=== PATIENT | male | born 1970 | race Caucasian/White ===

== ENCOUNTER 2020-08-29 03:14 | Inpatient (IN) | payer BC ==
[~2020-08-29] VITALS: Ht 185.4 cm; Wt 83.6 kg
[2020-08-29 04:12] LABS: BASOPHILS ABSOLUTE AUTO 0.09 K/mm3 (0.00-0.23); BASOPHILS PERCENT AUTO 1 % (0-2); EOSINOPHILS ABSOLUTE AUTO 0.29 K/mm3 (0.00-0.68); EOSINOPHILS PERCENT AUTO 3 % (0-6); Hematocrit 50.3 % (37.0-53.0); Hemoglobin 16.5 g/dL (13.5-17.5); IMMATURE GRAN ABSOLUTE AUTO 0.03 K/mm3 (0.00-0.10); IMMATURE GRAN PERCENT AUTO 0 % (0-1); LYMPHOCYTES ABSOLUTE AUTO 2.19 K/mm3 (0.84-5.20); LYMPHOCYTES PERCENT AUTO 22 % (21-46); MONOCYTES PERCENT AUTO 10 % (4-13); Mean Corpuscular HGB 28.9 pg (26.0-34.0); Mean Corpuscular HGB Conc 32.8 g/dL (31.5-36.5); Mean Corpuscular Volume 88 fL (80-100); Mean Platelet Volume 11.1 fL (9.1-12.4); NEUTROPHILS ABSOLUTE AUTO 6.39 K/mm3 (1.96-9.15); NEUTROPHILS PERCENT AUTO 64 % (41-73); Platelet Count 229 K/mm3 (150-400); RDW Coefficient Variation 12.4 % (11.7-14.2); RDW Standard Deviation 40.8 fL (35.1-46.3); White Blood Cell Count 9.99 K/mm3 (4.00-11.30)
[2020-08-29 04:34] LABS: Alanine Aminotransfer (ALT/SGP 35 U/L (12-78); Albumin, Blood 3.8 g/dL (3.4-5.0); Alk Phos 95 U/L (50-136); Anion Gap 7 mmol/L (6-16); Aspartate Aminotrans (AST/SGOT 23 U/L (12-37); Bilirubin, Total 0.7 mg/dL (0.1-1.0); Blood Urea Nitrogen 20 mg/dL (8-24); Bun/Creatinine Ratio 15.2 (12.0-20.0); CO2, Blood 26 mmol/L (21-32); Calcium, Blood 8.8 mg/dL (8.5-10.1); Chloride, Blood 108 mmol/L (98-108); Creatinine, Blood 1.32 mg/dL (0.60-1.20); Ethanol (Alcohol), Blood, Med <3 mg/dL; Globulin, Blood 3.7 g/dL (2.2-4.0); Glomerular Filtration Rate >60 (60-); Glucose, Blood 117 mg/dL (70-99); Potassium, Blood 3.9 mmol/L (3.5-5.5); Salicylate <1.7 mg/dL (2.8-20.0); Sodium, Blood 141 mmol/L (136-145); Total Protein, Blood 7.5 g/dL (6.4-8.2)
[2020-08-29 04:41] LABS: Acetaminophen, Random <2.0 ug/mL (10.0-30.0)
[2020-08-29 04:52] LABS: Source, Urine Clean Catch
[2020-08-29 04:56] LABS: Bilirubin, Urine Neg (Neg); Blood, Urine 2+ (Neg); Glucose Qualitative, Urine Neg (Neg); Ketones, Urine Neg (Neg); Leukocyte Esterase, Urine Neg (Neg); Nitrite, Urine Neg (Neg); Protein, Urine 1+ (Neg); Urobilinogen, Urine NORM (Normal)
[2020-08-29 05:00] LABS: Appearance, Urine Clear (Clear); Color, Urine Yellow (P-Yellow)
[2020-08-29 05:11] LABS: Red Blood Cells, Urine 0-2 /hpf (0-2); White Blood Cells, Urine 0-2 /hpf (0-5)
[2020-08-29 05:12] LABS: Bacteria Few /hpf
[2020-08-29 05:13] LABS: Squamous Epithelial Cells Not Seen /hpf (Few)
[2020-08-29 05:20] LABS: U Amphetamine Screen Not Detected; U Barbituate Screen Not Detected; U Benzodiazapine Screen Not Detected; U Buprenorphine Screen Not Detected; U Cannabinoids Screen Not Detected; U Cocaine Screen Not Detected; U Methadone Screen Not Detected; U Methamphetamine Screen Not Detected; U Opiates Screen Not Detected; U Oxycodone Screen Not Detected; U Phencyclidine Screen Not Detected; U Propoxyphene Screen Not Detected
[2020-08-29 06:25] LABS: Appearance, CSF Clear (Clear); Color, CSF No Color (No Color)
[2020-08-29 06:26] LABS: RBC Count, CSF 8 /mm3 (0-0); WBC Count, CSF 6 /mm3 (0-5)
[2020-08-29 06:28] LABS: Influenza A, PCR NEGATIVE (NEGATIVE); Influenza B, PCR NEGATIVE (NEGATIVE); Resp Syncytial Virus, PCR NEGATIVE (NEGATIVE); SARS-Cov-2 (COVID-19) PCR, MMC NEGATIVE (NEGATIVE)
[2020-08-29 06:30] LABS: Appearance, CSF Clear (Clear); Color, CSF No Color (No Color); WBC Count, CSF 3 /mm3 (0-5)
[2020-08-29 06:31] LABS: RBC Count, CSF 38 /mm3 (0-0)
[2020-08-29 06:39] LABS: Cryptococcus Neoformans/Gattii Not Detected (NOT DETECT); Enterovirus Not Detected (NOT DETECT); Escherichia Coli K1 Not Detected (NOT DETECT); Haemophilus Influenza Not Detected (NOT DETECT); Herpes Simplex Virus 1 Not Detected (NOT DETECT); Herpes Simplex Virus 2 Not Detected (NOT DETECT); Human Herpesvirus 6 Not Detected (NOT DETECT); Human Parechovirus Not Detected (NOT DETECT); Listeria Monocytogenes Not Detected (NOT DETECT); Neisseria Meningitidis Not Detected (NOT DETECT); Streptococcus Agalactiae Not Detected (NOT DETECT); Streptococcus Pneumoniae Not Detected (NOT DETECT); Varicella Zoster Virus Not Detected (NOT DETECT)
[2020-08-29 06:47] LABS: Glucose, CSF 73 mg/dL (40-70)
[2020-08-29 06:52] LABS: Lymphocytes, CSF 66 % (40-80); Monocytes, CSF 32 % (15-45); Neutrophils, CSF 2 % (0-6)
[2020-08-29 06:58] LABS: Lymphocytes, CSF 40 % (40-80); Monocytes, CSF 60 % (15-45)
--- NOTE | 2020-08-29 10:11 | NUR ---
PT TO ICU 2 FROM ED. PT ARRIVES INTUBATED AND SEDATED. VENT SETTINGS AC 16/500/5/35%, ETT 8.0 27 @ TEETH. PT ARRIVES SEDATED ON 40 MCG/KG/MIN PROPOFOL AND VERSED GTT @ 5. PT EASILY AROUSED AND AGITATED WITH STIMULATION, PT REACHES FOR TUBES AND SITS UP IN BED. VERSED GTT STOPPED PER PHYSICIAN ORDER AND PROPOFOL INCREASED TO 65 MCG/KG/MIN. LR @ 100 ML/HR INFUSING. PT HAS MINOR ABRASION TO RIGHT FOREHEAD, SMALL ABRASION TO RIGHT BIG TOE, SCATTERED SCABS BLE, LARGE BRUISE TO LEFT HIP, LUMBAR PUNCTURE PERFORMED IN ED. ARNETT PATENT AND DRAINING TO GRAVITY, ETT TO LIS. SEE FULL ADMISSION ASSESSMENT.
--- NOTE | 2020-08-29 10:30 | NUR ---
PT PLACE ON 2-MD HOLD IN ED D/T ACUTE PSYCHOSIS, ATTEMPT TO INJURE SELF, STAFF, AND FAMILY. HOLD ORDER ENTERED. SUICIDE ASSESSMENT TO BE DONE UPON EXTUBATION.
--- NOTE | 2020-08-29 12:40 | NUR ---
CONFERENCE CALL WITH THIS NURSE, PT'S 2-SISTERS, , AND 2-SON'S. PER PATIENTS FAMILY, PT HAS HISTORY OF MINOR ASTHMA, NO ADDITIONAL MEDICAL ISSUES. NO HISTORY OF ALCOHOL OR DRUG ABUSE. PT DOES NOT TAKE ANY MEDICATIONS. PATIENT DOES NOT HAVE PERSONAL MENTAL HEALTH HISTORY BUT PATIENTS MOTHER WAS DIAGNOSED WITH BIPOLAR AND SHIZOAFFECTIVE DISORDER (PER FAMILY THIS WAS D/T CHILDHOOD TRAUMA). FAMILY BELIEVES PATIENT IS EXPERIENCING A "PSYCHOTIC BREAK" D/T INCREASING FAMILY STRESS. PATIENT'S FATHER WAS RECENTLY DIAGNOSED WITH CANCER AND THE FAMILY HAS EXPERIENCED SEVERAL LOSSES OF FAMILY MEMBERS OVER THE LAST YEAR. PATIENTS FAMILY BELIEVE PATIENT WOULD BENEFIT FROM INPATIENT PSYCHIATRIC CARE AT THIS TIME. PATIENTS CONCERNED THAT WHEN EXTUBATED PATIENT MAY BECOME COMBATIVE OR WILL APPEAR TO BE "NORMAL". STATES PT HAS A "TRIGGER WORD" THAT IS TRIGGERING HIS PARNOIA- TRIGGER WORD IS "LATTER DAY". PER PATIENTS , PATIENT HAS EXPERIENCED INCREASING ANXIETY AND HAS BEEN UNABLE TO SLEEP FOR 3 DAYS. AROUND 1900 LAST NIGHT PT BEGAN TO EXPERIENCE AUDITORY HALLUCINATIONS AND BECAME PARANOID INSISTING "THEY WERE AFTER HIM". AT SOME POINT PATIENT DROPPED 2LB WEIGHT ON HIS FOREHEAD CAUSING A SMALL ABRASION ON RIGHT SIDE OF FOREHEAD. PT'S FAMILY DESIGNATED SISTER CASPER POINT OF CONTACT. FAMILY REQUESTING TO KNOW WHEN PT IS TO BE EXTUBATED THEY WISH TO BE IN THE PARKING LOT. REVIEWED VISITATION RULES AND VISITING HOURS WITH FAMILY. THEY STATE UNDERSTANDING AND SEEM TO HAVE A REALISTIC AND APPROPRIATE EXPECTATIONS.
--- NOTE | 2020-08-29 15:40 | NUR ---
PT EASILY AGITATED, SITS UP IN BED PULLING ON RESTRAINTS AND BITING TUBE. UNABLE TO INCREASE PROPOFOL GREATER THAN 40 MCG/KG/MIN D/T RELATED HYPOTENSION. PT GIVEN FENTANYL 50 MCG Q2H AND ORDER TO START PRECEDEX GTT.
--- NOTE | 2020-08-29 17:57 | NUR ---
SHIFT SUMMARY PT REMAINS INTUBATED AND SEDATED. VENT SETTINGS UNCHANGE AC 16/500/5/35% WITH SATS>90%. PROPOFOL @30 MCG/KG/MIN, PRECEDEX 0.2 MCG/KG/HR. PT EASILY AROUSABLE AND AGITATED WITH STIMULI BUT UNABLE TO INCREASE SEDATION D/T HYPOTENSION. PT RESPONDS WELL TO 50 MCG FENTANYL ADJUNCT TO SEDATION. 1200 URINARY OUTPUT.. PLEASE SEE PREVIOUS NOTES FROM THIS SHIFT. WILL REPORT TO DAYSHIFT NURSE.
--- NOTE | 2020-08-29 19:00 | NUR ---
ASSUMED CARE NOTE: ASSUMED CARE OF PT AT 1900, RECEVIED REPORT FROM AWAIS HERNANDEZ. PT IS INTUBATED AND SEDATED WITH PROPOFOL AT 30MCG/KG/MIN, PRECEDEX AT 0.4MCG/KG/HR. PT IS RESPONDING TO PAINFUL AND VERBAL STIMULI. PT ABLE TO ANSWER YES/NO QUESTIONS USING HEAD NODS. VENT SETTINGS AT AC16/500/5/30% SPO2 ABOVE 90% NO SECRETIONS NOTED VIA ETT SUCTION. EXP WHEEZE HEARD IN RIGHT LOBES. PT IN SINUS RYTHYM WITH HR IN THE 60'S. SOFT BP NOTED DUE TO SEDATION, WILL MONITOR. OGT CLAMPED AT THIS TIME. BT HEARD IN ALL QUADRANTS. ARNETT PATENT DRAINING TO GRAVITY. PT IN BILAT SWR, BED AT LOWEST LEVEL.
--- NOTE | 2020-08-29 20:41 | NUR ---
UPDATE: ATTEMPTED TO DECREASE PROPOFOL DUE TO LOW BP, PROPOFOL AT 25MCG/KG/MIN, PT SAT UP IN BED, BEGAN TO COUGH, BECAME AGITATED. PT WAS ABLE TO CALM SELF, PROPOFOL INCREASED BACK TO 30MCG/KG/MIN. WILL CONTINUE TO MONITOR.
--- NOTE | 2020-08-29 21:06 | NUR ---
VENT SETTINGS CHANGED TO AC16/560/5/30% ATTEMPTING TO TITRATE PROPOFOL DUE TO SBP IN THE 70'S AND MAP AT 58. PRECEDEX INCREASED TO 0.7MCG/KG/HR, FENTAYNL WILL BE GIVEN PRN, FOR SEDATION ADJUNCT. WILL CALL PHYSICAN TO NOTIFY OF BP.
--- NOTE | 2020-08-29 21:21 | NUR ---
CALLED DR. RM REGARDING BP, ORDERS TO GIVE 1 L OF NS WIDE OPEN AND TO START HALDOL IV PRN FOR AGITATION. IF BP DOES NOT IMPROVE AFTER 1L THEN GIVE ANOTHER 2ND LITER BOLUS. IF BP CONTINUES TO BE LOW WOULD LIKE TO BE NOTIFED.
--- NOTE | 2020-08-29 23:21 | NUR ---
PRECEDEX ON SB, IT MAY BE THE CAUSE OF LOW BP. PT WAS AGITATED, HALDOL GIVEN PER EMAR, WELL FENTANYL IV. RT AT BEDSIDE. WILL CONTINUE TO MONITOR
--- NOTE | 2020-08-30 01:52 | NUR ---
UPDATE: CALLED REGARDING LOW BP AND PT NOT TOLERATING VENT. UNABLE TO SUCCESSFULLY SEDATE PT DUE TO LOW BP. VERSED DRIP RECOMMENDED. 3RD LITER OF NS ALSO ORDERED.
--- NOTE | 2020-08-30 02:25 | NUR ---
UPDATE: PT SHIVERING , PLACED WARM BLANKETS. PT CONTINUES TO FOLLOW DIRECTIONS. VERSED DRIP INITIATED. NO BM SO FAR, DISPITE LACTULOSE DOSE GIVEN AT 2100. WILL BP STABLIZING.
[2020-08-30 03:26] LABS: BASOPHILS ABSOLUTE AUTO 0.03 K/mm3 (0.00-0.23); BASOPHILS PERCENT AUTO 1 % (0-2); EOSINOPHILS ABSOLUTE AUTO 0.31 K/mm3 (0.00-0.68); EOSINOPHILS PERCENT AUTO 5 % (0-6); Hematocrit 37.1 % (37.0-53.0); IMMATURE GRAN ABSOLUTE AUTO 0.01 K/mm3 (0.00-0.10); IMMATURE GRAN PERCENT AUTO 0 % (0-1); LYMPHOCYTES ABSOLUTE AUTO 1.24 K/mm3 (0.84-5.20); LYMPHOCYTES PERCENT AUTO 21 % (21-46); MONOCYTES ABSOLUTE AUTO 0.63 K/mm3 (0.16-1.47); MONOCYTES PERCENT AUTO 11 % (4-13); Mean Corpuscular HGB 29.1 pg (26.0-34.0); Mean Corpuscular HGB Conc 32.3 g/dL (31.5-36.5); Mean Corpuscular Volume 90 fL (80-100); NEUTROPHILS ABSOLUTE AUTO 3.58 K/mm3 (1.96-9.15); NEUTROPHILS PERCENT AUTO 62 % (41-73); Platelet Count 156 K/mm3 (150-400); RDW Coefficient Variation 12.8 % (11.7-14.2); RDW Standard Deviation 42.4 fL (35.1-46.3); Red Blood Cell Count 4.12 M/mm3 (4.30-5.90)
[2020-08-30 03:45] LABS: Magnesium, Blood 2.2 mg/dL (1.6-2.4)
[2020-08-30 03:53] LABS: Alanine Aminotransfer (ALT/SGP 21 U/L (12-78); Albumin, Blood 2.4 g/dL (3.4-5.0); Alk Phos 67 U/L (50-136); Anion Gap 4 mmol/L (6-16); Aspartate Aminotrans (AST/SGOT 15 U/L (12-37); Bilirubin, Total 0.7 mg/dL (0.1-1.0); Blood Urea Nitrogen 16 mg/dL (8-24); Bun/Creatinine Ratio 16.4 (12.0-20.0); CO2, Blood 22 mmol/L (21-32); Calcium, Blood 7.1 mg/dL (8.5-10.1); Chloride, Blood 119 mmol/L (98-108); Creatinine, Blood 0.97 mg/dL (0.60-1.20); Globulin, Blood 2.4 g/dL (2.2-4.0); Glomerular Filtration Rate >60 (60-); Glucose, Blood 91 mg/dL (70-99); Sodium, Blood 145 mmol/L (136-145)
[2020-08-30 03:54] LABS: Total Protein, Blood 4.8 g/dL (6.4-8.2)
--- NOTE | 2020-08-30 05:21 | NUR ---
SHIFT SUMMARY: SEE PREVIOUS NOTES. PT SEDATION IMPROVED WITH VERSED ON BOARD, CURRENTLY RUNNING AT 4MG/HR. PROPOFOL AT 25MCG/KG/MIN. VENT SETTINGS AT AC16/560/5/30% SPO2 ABOVE 90% PT IS CLEAR AND DIM T/O. NO SECRETIONS VIA ETT SUCTION. PT IN NSR WITH HR IN THE 70-80'S. SBP IMPROVING IN THE 100'S AT THIS TIME. GOAL TO MAINTAIN MAP ABOVE 60, PER DR. RM. PT RECEVIED 3L OF NS THIS SHIFT FOR BP SUPPORT. OGT TO LIS, LITTLE TO NO OUTPUT NOTED. NO BM THIS SHIFT. ARNETT PATENT AND DRAINING TO GRAVITY 600ML OUTPUT, HEYDI IN COLOR. SCD'S IN PLACE. WILL CONTINUE TO MONITOR PT UNTIL REPORT IS GIVEN TO ONCOMING SHIFT.
--- NOTE | 2020-08-30 09:05 | NUR ---
ASSUMED CARE / DR LICEA: REPORT RECEIVED FROM AGATA Rockwell RN. ASSUMED CARE OF THIS PT AT APPROX 0700. ON ASSESSMENT, THE PT IS INTUBATED W/ 8.0 ETT NOTED TO BE 27.0 CM AT THE TEETH. HE IS SEDATED W/ PROPOFOL @ 35 MCG/KG/MIN & VERSED @ 4 MG/HR. W/ THIS SEDATION INFUSING, HE IS ABLE TO FOLLOW SOME DIRECTIONS & ANSWER YES/NO QUESTIONS W/ HEAD NODDING. LS ARE CLEAR T/O, VENT SETTINGS: AC 16/560/5/25% W/ O2 SATS > 95%. MONITOR SHOWS SR W/ HR 70s, HYPOTENSION W/ SBP 90s NOTED WHEN PT RESTING QUIETLY. GOAL IS TO MAINTAIN MAP > 60. OGT IN PLACE TO LIS. SUCTION TURNED OFF AT APPROX 0905 FOR COMMUNICATIONS SENIOR ASSOCIATE THIS AM, WILL RESUME LIS IN APPROX 1 HR. PT HAS HAD NO BM DESPITE LACTULOSE PER EMAR. TEMP ARNETT PATENT/ DRAINING DARK YELLOW URINE. SKIN CONDITION OVERALL CDI - SEE ASSESSMENT FOR DETAILS. PROVIDER AT BEDSIDE TO EVAL PT THIS AM. HE WOULD LIKE THE VERSED TO BE STOPPED & HAS D/C'd THE ORDER. VENT FIO2 INCREASED TO 30%. ORDERS FOR ZYPREXA PER TUBE HAVE BEEN PLACED TO SEE IF THIS HELPS W/ PT's INTERMITTENT AGITATION. WILL CONTINUE TO MONITOR & UPDATE NEEDED.
--- NOTE | 2020-08-30 15:03 | NUR ---
EXTUBATION / UPDATE: THIS RN, CHIO Charlton, RT & FREDY Melendez, BLASTING MINER AT BEDSIDE FOR PENDING EXTUBATION. PROPOFOL HAS BEEN OFF SINCE APPROX 1255 & PRECEDEX CONTINUES INFUSING AT 0.5 MCG/KG/HR. THE PT IS CALM & COOPERATIVE AT THIS TIME, FOLLOWING DIRECTIONS & ANSWERING YES/ NO QUESTIONS W/ HEAD NODDING. PT EXTUBATED AT 1427 & BILAT SOFT WRIST RESTRAINTS ALSO REMOVED AT THIS TIME. THE PT HAS BEEN ENCOURAGE NOT TO SPEAK HIS THROAT WILL BE SORE, HE IS AGREEABLE TO THIS & CONTINUES TO COMMUNICATE USING HAND GESTURES/ NODS. HIS SISTER, CASPER, HAS COME TO VISIT TODAY & HAS SPOKEN W/ DR LICEA FOR AN UPDATE. SHE REMAINS AT BEDSIDE & IS SUPPORTIVE IN CARE. THE PT CONTINUES TO DO WELL SINCE EXTUBATION & DENIES PAIN.
--- NOTE | 2020-08-30 19:29 | NUR ---
SHIFT SUMMARY: NO ACUTE CHANGES SINCE PRIOR UPDATES. PT REMAINS A&O, COOPERATIVE W/ CARE ALTHOUGH SOMEWHAT PARANOID. WHEN THIS RN BRING THE PT A GLASS OF WATER, HE REQUESTS THAT THE WATER BE DUMPED OUT & THAT THE CUP BE FILLED W/ TAP WATER SO THAT HE CAN BE SURE THAT IT IS ONLY WATER. OTHERWISE HE IS PLEASANT. LS ARE CLEAR T/O, PT ON RA W/ O2 SATS > 95%. MONITOR SHOWS SR W/ HR 70-80s, BP STABLE. PT HAS NO GI COMPLAINTS & HAS TOLERATED A REGULAR DIET WELL THIS EVENING. DR LICEA WOULD LIKE THE LACTULOSE TO CONTINUE, DESPITE PT's FREQUENT, LOOSE BMs. HE WILL REASSESS THIS NEED AFTER AMMONIA LEVEL REDRAWN TOMORROW MORNING. ARNETT REMOVED SHORTLY AFTER EXTUBATION & PT HAS HAD NO DIFFICULTY VOIDING. SKIN CONDITION OVERALL CDI. REPORT GIVEN TO AGATA Rockwell RN TO ASSUME CARE.
--- NOTE | 2020-08-30 19:47 | NUR ---
ASSUMED CARE NOTE: ASSUMED CARE OF PT AT 1900, RECEVIED REPORT FROM KATELIN Sibley RN. PT IS ALERT AND ORIENTED TO SELF, FAMILY, AND FOLLOWS DIRECTIONS. PT UNABLE TO RECALL RECENT EVENTS. PT IS SHOWING SIGNS OF PARANOID BEHAVIOR. WHILE FLUSHING IV WITH NS FOR ASSESSMENT, PT REQUESTED TO SEE THE FLUSH OF NS, AND REQUESTED FOR THIS NURSE TO OPEN IT IN FRONT OF HIM. PT ALSO WANTS TO BE TOLD WHY ASSESSMENT IS REQUIRED, WHAT IS BEING DOCUMENTED IN HIS CHART, AND WHY THE ALARMS ARE GOING OFF. PT IS ON RA WITH SPO2 AT 98%, LUNG SOUNDS ARE CLEAR. PT REMOVED SPO2 MONITOR, WILL SPOT CHECK STATURATION LEVELS NEEDED. NO SIGNS OF RESPRIATORY DISTRESS NOTED. PT IS IN NSR WITH HR IN THE 70'S. SBP AT 160. PT DENIES ANY CHEST PAIN AT THIS TIME. PT DENIES ANY PAIN/NAUSEA. HYPERACTIVE BT HEARD IN ALL QUADRANTS. BIGGS PAD CHANGED DUE TO BM RESIDUAL. PT REQUESTED TO USE TOILET, REQUESTED THAT THIS NURSE LOOK AWAY AND COVERED HIMSELF WITH BLANKET. THIS RN STAYED BY PATIENT WHILE RESPECTING PRIVACY MUCH POSSIBLE. PT IS STEADY ON HIS FEET, NEEDS ASSISTANCE WITH CORDS. PRECEDEX INFUSING AT 0.5MCG/KG/HR, WILL ATTEMPT TO TITRATE T/O SHIFT. BED AT LOWEST LEVEL, CALL LIGHT WITHIN REACH.
--- NOTE | 2020-08-31 00:17 | NUR ---
PT WALKING AROUND IN ROOM, STS " I NEEDED WATER, I FELL ASLEEP AND DUMPED THE OLD ONE, I DO NOT TRUST ANYONE HERE" PT STS HE IS NOT ANXIOUS, HOWEVER IS CONFUSED ON WHERE HE IS. EXPLAINED TO PT THAT HE IS IN ICU, THAT HE IS BEING TAKEN CARE OF. PT THEN LAYED BACK INTO BED AND IS NOW WATCHING T.V. CALL LIGHT WITHIN REACH
[2020-08-31 03:14] LABS: BASOPHILS ABSOLUTE AUTO 0.02 K/mm3 (0.00-0.23); BASOPHILS PERCENT AUTO 0 % (0-2); EOSINOPHILS ABSOLUTE AUTO 0.31 K/mm3 (0.00-0.68); EOSINOPHILS PERCENT AUTO 5 % (0-6); Hematocrit 44.8 % (37.0-53.0); Hemoglobin 14.3 g/dL (13.5-17.5); IMMATURE GRAN ABSOLUTE AUTO 0.01 K/mm3 (0.00-0.10); IMMATURE GRAN PERCENT AUTO 0 % (0-1); LYMPHOCYTES ABSOLUTE AUTO 1.21 K/mm3 (0.84-5.20); LYMPHOCYTES PERCENT AUTO 19 % (21-46); MONOCYTES ABSOLUTE AUTO 0.57 K/mm3 (0.16-1.47); MONOCYTES PERCENT AUTO 9 % (4-13); Mean Corpuscular HGB Conc 31.9 g/dL (31.5-36.5); Mean Corpuscular Volume 91 fL (80-100); Mean Platelet Volume 10.9 fL (9.1-12.4); NEUTROPHILS PERCENT AUTO 67 % (41-73); Platelet Count 160 K/mm3 (150-400); RDW Coefficient Variation 12.4 % (11.7-14.2); RDW Standard Deviation 41.2 fL (35.1-46.3); Red Blood Cell Count 4.93 M/mm3 (4.30-5.90); White Blood Cell Count 6.42 K/mm3 (4.00-11.30)
[2020-08-31 03:32] LABS: Alanine Aminotransfer (ALT/SGP 38 U/L (12-78); Albumin/Globulin Ratio 0.9 (0.8-1.8); Alk Phos 87 U/L (50-136); Anion Gap 6 mmol/L (6-16); Aspartate Aminotrans (AST/SGOT 118 U/L (12-37); Blood Urea Nitrogen 7 mg/dL (8-24); CO2, Blood 27 mmol/L (21-32); Calcium, Blood 7.9 mg/dL (8.5-10.1); Chloride, Blood 113 mmol/L (98-108); Globulin, Blood 3.2 g/dL (2.2-4.0); Glomerular Filtration Rate >60 (60-); Glucose, Blood 96 mg/dL (70-99); Magnesium, Blood 2.1 mg/dL (1.6-2.4); Potassium, Blood 3.3 mmol/L (3.5-5.5); Sodium, Blood 146 mmol/L (136-145); Total Protein, Blood 6.2 g/dL (6.4-8.2)
--- NOTE | 2020-08-31 06:12 | NUR ---
SHIFT SUMMARY: SEE PREVIOUS NOTES. PRECEDEX HAS BEEN OFF SINCE 0000. PT HAS BEEN APPROPRIATE. USING CALL LIGHT, WILL GET UP OUT OF BED OCCASIONALLY TO OBTAIN WATER. BUILT A TRUST WITH PATIENT ABLE TO ADMINISTER MEDS, W/O DIFFICULTY. SHOWED PT EVERY MEDICATION AND EXPLAINED HOW THEY WORK, HE WAS AGREEABLE TO ALL. THIS NURSE HAD TO OPEN EACH MEDICATION IN FRONT OF PATIENT AND LET HIM SEE ALL LABELS. PT WALKED TO BEDSIDE TOILET, STEADY GAIT. PT HAS BEEN ON RA WITH SPO2 ABOVE 90 PERCENT. BP STABLE. PT HAS BEEN IN NSR WITH HR IN THE 80'S, UP THE 110 WHEN AMBULATING. WILL CONTINUE TO MONITOR PT UNTIL REPORT IS GIVEN TO ONCOMING SHIFT.
--- NOTE | 2020-08-31 08:15 | NUR ---
ASSESSMENT- PT AWAKE, ALERT, COOPERATIVE. ASKING QUESTIONS REGARDING CARE, REVIEWED PLAN. REMOTE MONITORING IN PLACE. 2 MD HOLD. PT MOVING SELF IN BED WITHOUT PROBLEMS. ATE BREAKFAST, NO N/V. FEBRILE, REFUSED TYLENOL. STATES "I DON'T FEEL BAD" WHEN ASKED REGARDING ANY PAIN OR DISCOMFORT. 2 PIV INTACT. ABLE TO FOLLOW DIRECTIONS. LUNGS CLEAR NO SOB. SINUS TACH, BP STABLE.
--- NOTE | 2020-08-31 08:32 | NUR ---
DR. URBANO CALLED BACK-UPDATED ON PT'S POTASSIUM LEVEL, HAD REPLACEMENT. PT STATES WOULD LIKE TO JUST REPLACE POTASSIUM BY EATING. BANANAS ORDERED PER REQUEST. CONTINUE TO MONITOR TEMPERATURE
--- NOTE | 2020-08-31 10:05 | NUR ---
AMBULATED TO SHOWER WITH CONFIGURATION ENGINEER, DID WELL. STATES FEELS BETTER. REVIEWED MEDICATIONS WITH PT-QUESTIONS ANSWERED, PLAN FOR DR. MANE TO CONSULT. ABLE TO DRINK ORANGE JUICE, ATE 2 BANANAS. TALKING ON PHONE WITH . CALM, COOPERATIVE.
--- NOTE | 2020-08-31 12:02 | NUR ---
PT EATING LUNCH WITHOUT COMPLAINTS. HAD RX FOR HEADACHE BEFORE-STATES RESOLVED NOW. DENIES ANY PROBLEMS. SMALL ABRASION LEFT FOREHEAD DRY.
--- NOTE | 2020-08-31 13:48 | NUR ---
Met pt in bed resting , pt. reports to be doing fine encouraged pt. and offered prayers
--- NOTE | 2020-08-31 15:00 | NUR ---
DENIES COMPLAINTS. PT'S HERE-REVIEWED PLAN OF CARE. QUESTIONS ANSWERED.
--- NOTE | 2020-08-31 15:45 | NUR ---
DR. MANE EVALUATED PATIENT- PLANS TO DC ZYPREXA, START SEROQUEL AT BEDTIME AND OBSERVE OVERNIGHT. OK FOR MEDICAL STATUS.
--- NOTE | 2020-08-31 18:43 | NUR ---
PT RESTING WITHOUT COMPLAINTS. HAS BEEN HERE FOR VISITING HOURS. DR. LICEA REVIEWED PLAN OF CARE WITH PT AND . WROTE NOTE EXPRESSING CONCERN FOR WHEN PT IS DISCHARGED-REPORTED TO DR. LICEA AND DR. URBANO. CONTINUE TO MONITOR. REMAINS COOPERATIVE, NO S/S AGITATION.
--- NOTE | 2020-08-31 19:15 | NUR ---
ASSUMING PT CARE: PT RESTING IN L SIDE LAYING POSITION, SLEEPING SOUNDLY, RR EVEN & UNLABORED. 2MD HOLD CONTINUES PER ORDERS. PT REMAINS ON REMOTE VIDEO MONITORING, SIGNALS COLLECTION TECHNICIAN CALLED & CONFIRMED PT IS BEING MONITORED. D/T PT's AGITATION REPORTED BY PREVIOUS RN, WILL ALLOW PT TO SLEEP @ THIS TIME & AWAKE HIM FOR BEDTIME MEDS & FULL ASSESSMENT.
--- NOTE | 2020-08-31 23:06 | NUR ---
PT UPDATE: RN @ BEDSIDE TO UPDATE PT's CIVIL RIGHTS PAPERWORK PT WAS INTUBATED AT THE TIME HE WAS PLACED ON A HOLD. CIVIL RIGHTS READ, PT NODDED IN UNDERSTANDING & ASKED APPROPRIATE QUESTIONS. PT DID APPEAR FRUSTRATED ABOUT THE LANGUAGE OF THE CIVIL RIGHTS, SHAKING HIS HEAD & ROLLING HIS EYES WHILE LISTENING. PT CONTINUES TO BE COOPERATIVE, GIVEN SANDWICH REQUESTED. PT CONTINUES TO EXHIBIT PARANOID BEHAVIORS, REFUSING WATER CUPS THAT ARE BROUGHT IN THE ROOM & ONLY DRINKING WATER FROM THE ROOM TAP & TAKING PILLS ONLY IF HE CAN SEE THEM BEING TAKEN FROM THEIR PACKAGE & PLACED IN HIS HANDS. VSS & UPDATED. PT RETURNS TO SLEEP WHEN IN DISTURBED.
[2020-09-01 03:54] LABS: BASOPHILS ABSOLUTE AUTO 0.02 K/mm3 (0.00-0.23); BASOPHILS PERCENT AUTO 0 % (0-2); EOSINOPHILS ABSOLUTE AUTO 0.34 K/mm3 (0.00-0.68); EOSINOPHILS PERCENT AUTO 7 % (0-6); Hematocrit 44.5 % (37.0-53.0); Hemoglobin 14.4 g/dL (13.5-17.5); IMMATURE GRAN ABSOLUTE AUTO 0.02 K/mm3 (0.00-0.10); IMMATURE GRAN PERCENT AUTO 0 % (0-1); LYMPHOCYTES ABSOLUTE AUTO 1.28 K/mm3 (0.84-5.20); LYMPHOCYTES PERCENT AUTO 25 % (21-46); MONOCYTES ABSOLUTE AUTO 0.69 K/mm3 (0.16-1.47); MONOCYTES PERCENT AUTO 14 % (4-13); Mean Corpuscular HGB 29.1 pg (26.0-34.0); Mean Corpuscular HGB Conc 32.4 g/dL (31.5-36.5); Mean Corpuscular Volume 90 fL (80-100); NEUTROPHILS ABSOLUTE AUTO 2.73 K/mm3 (1.96-9.15); NEUTROPHILS PERCENT AUTO 54 % (41-73); Platelet Count 176 K/mm3 (150-400); RDW Coefficient Variation 12.4 % (11.7-14.2); RDW Standard Deviation 41.5 fL (35.1-46.3); Red Blood Cell Count 4.95 M/mm3 (4.30-5.90); White Blood Cell Count 5.08 K/mm3 (4.00-11.30)
[2020-09-01 04:15] LABS: Alanine Aminotransfer (ALT/SGP 64 U/L (12-78); Albumin, Blood 2.9 g/dL (3.4-5.0); Albumin/Globulin Ratio 0.9 (0.8-1.8); Alk Phos 76 U/L (50-136); Anion Gap 5 mmol/L (6-16); Aspartate Aminotrans (AST/SGOT 184 U/L (12-37); Bilirubin, Total 0.6 mg/dL (0.1-1.0); Blood Urea Nitrogen 12 mg/dL (8-24); Bun/Creatinine Ratio 10.5 (12.0-20.0); CO2, Blood 28 mmol/L (21-32); Calcium, Blood 8.3 mg/dL (8.5-10.1); Chloride, Blood 112 mmol/L (98-108); Creatinine, Blood 1.14 mg/dL (0.60-1.20); Globulin, Blood 3.3 g/dL (2.2-4.0); Glomerular Filtration Rate >60 (60-); Glucose, Blood 101 mg/dL (70-99); Magnesium, Blood 2.3 mg/dL (1.6-2.4); Potassium, Blood 3.8 mmol/L (3.5-5.5); Sodium, Blood 145 mmol/L (136-145); Total Protein, Blood 6.2 g/dL (6.4-8.2)
--- NOTE | 2020-09-01 05:40 | NUR ---
SHIFT SUMMARY: PT SLEPT WELL THROUGHOUT THE NIGHT. AWAKES WHEN STAFF ENTERS ROOM. CONTINUES TO BE CALM, COOPERATIVE W/ CARE. DISCUSSED THAT PLAN OF CARE TO BE DETERMINED BY DR MANE. PT VERBALIZES UNDERSTANDING. CONTINUOUS VIDEO MONITORING CONTINUES. WILL CONTINUE TO MONITOR UNTIL REPORT OFF TO ONCOMING RN.
--- NOTE | 2020-09-01 08:30 | NUR ---
ASSESSMENT- PT UP IN ROOM IN CHAIR, AWAKE, ALERT, COOPERATIVE. STATES FEELS MOOD IS FINE, STATES DOES FEEL SOME IRRITATION THAT HE IS IN HOSPITAL AND WOULD LIKE TO GO HOME TODAY. EXPLAINED PLAN OF CARE, NEED TO SEE DR. MANE TODAY, AGREEABLE. TALKING ABOUT HOME IMPROVEMENT PROJECTS THAT HE NEEDS TO COMPLETE. LUNGS CLEAR, SINUS TACH 100'S. BP STABLE. ATE 100%, OFFERED MORE FOOD BUT REFUSED. VOIDING. SL INTACT RIGHT WRIST.
--- NOTE | 2020-09-01 10:05 | NUR ---
PT UP TO SINK FOR AM CARE, WALKED WITH STANDBY ASSIST TO SHOWER AND BACK WITHOUT PROBLEMS. COOPERATIVE WITH CARE. HE TALKED WITH ON PHONE.
--- NOTE | 2020-09-01 10:10 | NUR ---
REVIEWED LABS WITH DR. LICEA. DR. URBANO TO FOLLOW
--- NOTE | 2020-09-01 12:03 | NUR ---
DR. URBANO HERE-UPDATED, AWARE OF LABS. PT'S STEF PAPERS GIVEN TO COMPLETE. DR. MANE HERE-TALKED WITH PT'S ON PHONE. PLAN TO HAVE PT'S COME IN AND DISCUSS PLAN WITH PT. PT UP IN ROOM WITHOUT COMPLAINTS
--- NOTE | 2020-09-01 14:53 | NUR ---
PT'S HERE-STATES OK TO TAKE PT HOME. NOTIFIED DR. MANE-ORDERS FOR SEROQUEL 50 MG EVERY HS QUANTITY 15 WITH ONE REFILL. UPDATE TO DR. URBANO-RELEASED HOLD, TO DISCHARGE HOME.
[2020-09-01] MEDS ORDERED: Seroquel Xr50 MG PO (15:11)
[2020-09-01] MEDS ORDERED: CRANBERRY450 MG PO (15:18)
[2020-09-01] MEDS ORDERED: ACET325 PO (15:18)
--- NOTE | 2020-09-01 15:50 | NUR ---
PT CALM, COOPERATIVE. DR. URBANO HERE-D/C HOLD. PT DISCHARGED AFTER REVIEWING MEDICATIONS, STATES UNDERSTANDING. STATES WILL MAKE FOLLOW UP APPOINTMENTS. PIV D/C. WORKERS COMP PAPERWORK GIVEN TO -DR URBANO COMPLETED. PT STATES WILL CALL PHYSICIANS OFFICE IF ANY PROBLEMS.
[2020-09-02 09:10] LABS: HBSAG SCREEN Negative (Negative); HEP A AB, IGM Negative (Negative); HEP B CORE AB, IGM Negative (Negative); HEP C VIRUS AB <0.1 (0.0-0.9)
== END 2020-09-01 15:50 | disposition home or self-care (01) | DRG 91 ==
LOC: ER 03:14 → ICUE 05:18 → ICUW 05:18 → ICUE 07:05
PROVIDERS: Emergency Medicine; Family Medicine; ADMIT Family Medicine
PROC: 5A1945Z Respiratory Ventilation, 24-96 Consecutive Hours (ICD-10-PCS; principal; 2020-08-29)
PROC: 0BH18EZ Insertion of Endotracheal Airway into Trachea, Via Natural or Artificial Opening Endoscopic (ICD-10-PCS; 2020-08-29)
PROC: 009U3ZX Drainage of Spinal Canal, Percutaneous Approach, Diagnostic (ICD-10-PCS; 2020-08-29)
DX: G92 Toxic encephalopathy (principal); J96.00 Acute respiratory failure, unspecified whether with hypoxia or hypercapnia; E87.2 Acidosis; E72.20 Disorder of urea cycle metabolism, unspecified; N17.9 Acute kidney failure, unspecified; R65.10 Systemic inflammatory response syndrome (SIRS) of non-infectious origin without acute organ dysfunction; Z20.822 Contact with and (suspected) exposure to COVID-19; I95.9 Hypotension, unspecified; Z78.1 Physical restraint status; S09.90XA Unspecified injury of head, initial encounter; W21.89XA Striking against or struck by other sports equipment, initial encounter; Y93.9 Activity, unspecified
CPT/HCPCS: 0241U; 31500; 31720; 36415; 51702; 62270; 70450; 71045; 80053; 80074; 81001; 82140; 82550; 82945; 83605; 83735; 84157; 85025; 87040; 87070; 87205; 87483; 89051; 94002; 94003; 96365-59; 96375-59; 99285-25; A9270; C9113; G0480; J0330; J0696; J1630; J1650; J2250; J2704; J3010; J3370; J7030; J7050; J7060; J7120; J8499